=== PATIENT | female | born 1960 | race Asian ===

== ENCOUNTER → 2023-11-04 09:39 | Outpatient (REF) | payer MEDICARE, SELFPAY | LOC: MRI 3T 09:39 | PROVIDERS: ATTENDING PHYSICIAN Internal Medicine Hematology & Oncology; FAMILY PHYSICIAN Nurse Practitioner | DX: Z15.89 Genetic susceptibility to other disease (principal); D05.11 Intraductal carcinoma in situ of right breast | CPT/HCPCS: 74183; A9575 ==

== ENCOUNTER 2024-03-01 07:08 | Emergency (ER) | payer MEDICARE, SELFPAY ==
[2024-03-01 07:12] VITALS: BP 122/74
--- NOTE | 2024-03-01 08:14 | ED.GENMED ---
History of Present Illness
General
Chief Complaint: Fall
Source: patient and spouse
Exam Limitations: none
Time Seen by Provider: 03/01/24 07:48
Travel History
Have you had any contact with someone who has COVID-19?: No
Do you have any symptoms of coronavirus? Fever > 100 degrees, chills, cough, shortness of breath, sore throat, loss of taste or smell, muscle aches, or headache?: No
History of Present Illness
History of Present Illness:
63-year-old female fell down the steps yesterday. Patient states it happened about 6 PM. She complains of pain in her left lateral chest wall when she sneezes or takes a deep breath or moves. She also complains of left ankle swelling and
difficulty walking due to pain. No vomiting. Did bang her knees bilaterally. Tried to catch herself on the railing but she could not hold long. Patient has a history of mastectomy. Denies anticoagulation. No loss of consciousness. No neck
pain. No back pain. No numbness or tingling. No motor weakness.
Past History
Past History
ED Past Medical History: Cancer (Breast cancer) and HTN
ED Past Surgical History: Other (Mastectomy, hysterectomy)
Phy Exam
Physical Exam
Physical Exam:
CONSTITUTIONAL Patient alert and oriented to person, place and time. Well-appearing. Vital signs reviewed.
HEAD atraumatic, normocephalic.
EYES eyelids normal to inspection, Extraocular muscles intact, Conjunctiva normal, Sclera normal.
NECK normal range of motion, Trachea midline, no jugular venous distention. No midline tenderness
RESPIRATORY CHEST No respiratory distress noted, Chest expansion equal, Bilateral breath sounds clear. No crepitus. Interesting, unable to palpate focal tenderness. Patient reports pain is in the left chest wall about rib areas 6 through 8
laterally.
CARDIOVASCULAR regular rate and rhythm, Heart sounds normal.
ABDOMEN No distention.
BACK normal inspection, no obvious deformities, no midline tenderness
UPPER EXTREMITY range of motion normal, Motor strength normal, no cyanosis, no edema.
LOWER EXTREMITY range of motion normal, Motor strength normal, no cyanosis, no edema. Bruising noted to the right medial knee and left lateral knee with a small abrasion on the left knee. She has full range of motion of bilateral knees. There is
swelling noted to the lateral malleolus of the left ankle. There is no distal fibular tenderness. There is no distal tibial tenderness. There is no fifth metatarsal or midfoot tenderness. She does have tenderness in the area of the left anterior
talofibular ligament.
NEURO Speech normal, No focal motor deficits, Amberly coma scale 15, Memory normal, Cranial Nerves intact to screening exam.
SKIN skin warm, dry, and normal in color.
PSYCHIATRIC patient oriented to person place and time, Normal affect.
Course
Orders/Labs/Results
Orders:
Orders
03/01/24 07:21
Ankle, left 3 view CR [CR Ankle - Left Min 3 Views ] Urgent
Comment:
Reason For Exam: ankle pain after a fall
Ribs, Left 3 View W/PA Chest CR [CR Ribs-left 3 Vw W/pa Chest] Urgent
Comment:
Reason For Exam: left lateral rib pain after a fall
03/01/24 08:07
Ibuprofen [Motrin] 600 mg PO NOW STA
03/01/24 08:43
Air Splint Left-Treatment ONCE
Crutches-Treatment ONCE
Vital Signs
Initial and Last Documented VS:
Initial Vital Signs
Temp Pulse Resp BP Pulse Ox
98.6 F 71 17 122/74 96
03/01/24 07:12 03/01/24 07:12 03/01/24 07:12 03/01/24 07:12 03/01/24 07:12
Last Documented Vital Signs
Temp Pulse Resp BP Pulse Ox
98.6 F 71 17 122/74 96
03/01/24 07:12 03/01/24 07:12 03/01/24 07:12 03/01/24 07:12 03/01/24 07:12
MDM/Problems Addressed
MDM/Problems Addressed:
Ankle sprain, chest wall injury
*Radiology
Radiology exam reviewed: preliminary read by ED provider (No obvious fractures noted to the left ankle. No pneumothorax)
*Pulse Oximetry
Patient hypoxic: no
*Critical Care Note
Total Time (30-74mins, 75-104mins- exclusive of procedures): Not Applicable
Data Reviewed
Source: patient and spouse
Further Testing Considered But Not Given:
Considered CT of the head and neck but patient denies head injury or neck pain.
Patient Management
Escalation/DeEscalation of care consider admission/obs:
63-year-old female presents after fall yesterday. No obvious ankle fractures noted. Case, stirrup splint and crutches. Recommended rest, ice, elevation. For chest wall injury recommended incentive spirometry every hour. NSAIDs for pain.
ED Attending Note
-
Portions of this chart may have been created with voice recognition software.� Occasional wrong word or��sound alike� substitutions may have occurred due to the inherent limitations of voice recognition software.
Discharge Plan
Departure
Patient Disposition: Home (Routine Discharge)
Date of Disposition: 03/01/24
Time of Disposition: 08:52
Patient with high blood pressure during this ER visit?: No
Discharge Problem:
Fracture of rib, Ankle sprain
Instructions: Ankle Sprain ED, Rib Fracture
Prescriptions:
No Action
losartan 50 mg Tablet
50 mg PO DAILY
aspirin 81 mg Tablet,Delayed Release (Dr/Ec)
81 mg PO DAILY
pravastatin 20 mg Tablet
20 mg PO HS
calcium 100 mg Capsule
400 mg PO DAILY
Vitamin D3 100 mcg (4,000 unit) Capsule
1 mcg PO .HS
vitamin K2 90 mcg Capsule
90 mcg PO DAILY
Referrals:
NONE,* [Family Provider] -
Activity Restrictions/Additional Instructions:
Please ice your injured ankle. Please use at this [place] 10 times per hour while awake. Return immediately for weakness of any kind, difficulty breathing, fevers or any other concerns.
Discharge Date and Time
Print Language: LATVIAN
[2024-03-01 08:56] VITALS: BMI 29.4
[2024-03-01 09:51] VITALS: BP 124/74
== END 2024-03-01 09:53 | disposition home or self-care (01) ==
LOC: EMR 07:08
PROVIDERS: EMERGENCY PHYSICIAN Emergency Medicine
DX: S22.32XA Fracture of one rib, left side, initial encounter for closed fracture (principal); S93.402A Sprain of unspecified ligament of left ankle, initial encounter; S80.212A Abrasion, left knee, initial encounter; W10.9XXA Fall (on) (from) unspecified stairs and steps, initial encounter; R26.2 Difficulty in walking, not elsewhere classified; I10 Essential (primary) hypertension; Z79.82 Long term (current) use of aspirin; Z85.3 Personal history of malignant neoplasm of breast; Z90.10 Acquired absence of unspecified breast and nipple; Z88.5 Allergy status to narcotic agent
CPT/HCPCS: 99284; 29515; 71101; 73610

== ENCOUNTER → 2024-06-07 06:46 | Outpatient (REF) | payer MEDICARE, SELFPAY | LOC: MRI 3T 06:46 | PROVIDERS: ATTENDING PHYSICIAN Specialist; FAMILY PHYSICIAN Nurse Practitioner | DX: M25.562 Pain in left knee (principal) | CPT/HCPCS: 73721 ==